=== PATIENT | male | born 1985 | race Caucasian/White ===

== ENCOUNTER 2016-07-07 19:40 | Emergency (ER) | payer OTHER ==
[~2016-07-07] VITALS: Ht 185.4 cm; Wt 86.9 kg
[~2016-07-07 19:40] MED LIST: ALBUTEROL SULF8.5 GM IH; AUGMENTIN875 MG PO; CEPHALEXIN500 MG PO; CLEOCIN150 MG PO; CLEOCIN300 MG PO; INDOCIN25 MG PO; NOHOMEMEDS; NORCO 7.5/321 TABLET PO; OXCARBAZEPINE300 MG PO; OXYCODONE H5 MG/5 ML PO; PEN-VEE K,VEET500 MG PO; PERCOCET 5/31 TABLET PO; PROVENTIL HFA6.7 GM IH; PROVENTIL17 GM IH; SINGULAIR10 MG PO; TRAMADOL HCL50 MG PO; ULTRAM50 MG PO; VENTOLIN HFA18 GM IH; ZOFRAN ODT4 MG PO; ZOLPIDEM TARTRA10 MG PO
[2016-07-07] MEDS ORDERED: ZITHROMAX Z-PA250 MG PO (21:00)
[2016-07-07] MEDS ORDERED: TYLENOL WITH C1 EACH PO (21:00)
[2016-07-07 21:34] VITALS: BP 138/83
== END 2016-07-07 21:35 | disposition home or self-care (01) ==
LOC: EME 19:40
DX: J03.90 Acute tonsillitis, unspecified (principal); F17.200 Nicotine dependence, unspecified, uncomplicated
CPT/HCPCS: 87651 90; 99281; 99284; J1100

== ENCOUNTER 2016-11-10 11:19 | Emergency (ER) | payer OTHER ==
[~2016-11-10] VITALS: Ht 188 cm; Wt 90.1 kg
[~2016-11-10 11:19] MED LIST changes: +TYLENOL WITH C1 EACH PO; +ZITHROMAX Z-PA250 MG PO
[2016-11-10] MEDS ORDERED: VENTOLIN HFA18 GM IH (11:28)
[2016-11-10 11:45] VITALS: BP 127/87
== END 2016-11-10 11:53 | disposition home or self-care (01) ==
LOC: EME 11:19
PROC: 3E0234Z Introduction of Serum, Toxoid and Vaccine into Muscle, Percutaneous Approach (ICD-10-PCS; principal; 2016-11-10)
PROC: 0HQFXZZ Repair Right Hand Skin, External Approach (ICD-10-PCS; principal; 2016-11-10)
DX: S61.216A Laceration without foreign body of right little finger without damage to nail, initial encounter (principal); W27.8XXA Contact with other nonpowered hand tool, initial encounter; Z23 Encounter for immunization; F17.200 Nicotine dependence, unspecified, uncomplicated
CPT/HCPCS: 99281; 99284

== ENCOUNTER 2017-03-31 16:18 | Emergency (ER) | payer OTHER ==
[~2017-03-31] VITALS: Ht 185.4 cm; Wt 85.9 kg
[2017-03-31] MEDS ORDERED: ZITHROMAX Z-PA250 MG PO (18:26)
[2017-03-31] MEDS ORDERED: LIDOCAINE20 MG/1 M5 PO (18:26)
[2017-03-31] MEDS ORDERED: NAPROSYN500 MG PO (18:27)
[2017-03-31 18:49] VITALS: BP 127/76
== END 2017-03-31 18:51 | disposition home or self-care (01) ==
LOC: EME 16:18
DX: J02.9 Acute pharyngitis, unspecified (principal); J35.1 Hypertrophy of tonsils; R68.83 Chills (without fever); J45.909 Unspecified asthma, uncomplicated; F17.200 Nicotine dependence, unspecified, uncomplicated
CPT/HCPCS: 87651 90; 99281; 99285; J1100

== ENCOUNTER 2017-06-19 15:30 | Emergency (ER) | payer OTHER ==
[~2017-06-19] VITALS: Ht 188 cm; Wt 89.0 kg
[~2017-06-19 15:30] MED LIST changes: +LIDOCAINE20 MG/1 M5 PO; +NAPROSYN500 MG PO
[2017-06-19 16:20] LABS: HEMATOCRIT 43.8 % (38.0-50.0); HEMOGLOBIN 14.5 G/DL (12.5-16.6); MCH 29.1 PG (29.0-34.0); MCHC 33.1 G/DL (30.0-36.0); RBC DIS.WIDTH-CV 13.1 % (11.8-14.6); RBC DIS.WIDTH-SD 41.7 % (39-53); RED BLOOD COUNT 4.98 M/uL (4.00-5.50); WHITE BLOOD COUNT 5.9 K/uL (4.1-10.2)
[2017-06-19 16:34] LABS: CHLORIDE 108 MEQ/L (99-109); POTASSIUM 4.1 MEQ/L (3.7-5.4); SODIUM 140 MEQ/L (136-147); TOTAL BILIRUBIN 0.5 MG/DL (0.0-1.0)
[2017-06-19 16:40] LABS: ALKALINE PHOSPHATASE 63 IU/L (3-129); ALT (GPT) 15 IU/L (3-49); AST (GOT) 13 IU/L (2-34); CREATININE 0.9 MG/DL (0.6-1.3); GFR ESTIMATE (CALCULATED) > 59 mL/min/ (58.99-99999); GLUCOSE 103 mg/dL (70-99); LIPASE 14 U/L (1.0-51.0); TOTAL PROTEIN 6.8 G/DL (6.4-8.3); UREA NITROGEN (BUN) 8 mg/dL (9-23)
[2017-06-19 17:19] LABS: PLAT.SUFFICIENCY ADEQUATE; PLATELET COUNT 178 K/uL (156-360)
[2017-06-19 17:20] LABS: SOURCE URINE
[2017-06-19 17:24] LABS: APPEARANCE CLEAR ((CLEAR)); BILIRUBIN NEGATIVE; BLOOD NEGATIVE; COLOR YELLOW ((YELLOW)); GLUCOSE (STRIP) NEGATIVE; KETONES NEGATIVE; LEUKOCYTES NEGATIVE; NITRITE NEGATIVE; PROTEIN (STRIP) NEGATIVE; SPECIFIC GRAVITY 1.014 (1.000-1.030); UCUL ADDED? NO; UROBILINOGEN 0.2 MG/DL (0.2-1.0)
[2017-06-19] MEDS ORDERED: MOTRIN600 MG PO (18:06)
[2017-06-19] MEDS ORDERED: NORCO 5/3251 TABLET PO (18:06)
[2017-06-19] MEDS ORDERED: OMEPRAZOLE40 M1 PO (18:06)
[2017-06-19 18:18] VITALS: BP 124/78
[2017-06-20 12:34] LABS: CHLAMYDIA TRACHOMATIS NEGATIVE; NEISSERIA GONORRHOEAE NEGATIVE
== END 2017-06-19 18:28 | disposition home or self-care (01) ==
LOC: EME 15:30
PROVIDERS: Physician Assistant
DX: N50.812 Left testicular pain (principal); R10.13 Epigastric pain; K62.5 Hemorrhage of anus and rectum; R36.9 Urethral discharge, unspecified; Z80.43 Family history of malignant neoplasm of testis; F17.200 Nicotine dependence, unspecified, uncomplicated; J45.909 Unspecified asthma, uncomplicated
CPT/HCPCS: 76870; 80053; 81003; 83690; 85027; 87491; 87591; 99281; 99284; J0696

== ENCOUNTER 2017-07-08 21:05 | Emergency (ER) | payer OTHER ==
[~2017-07-08] VITALS: Ht 188 cm; Wt 88.9 kg
[~2017-07-08 21:05] MED LIST changes: +MOTRIN600 MG PO; +NORCO 5/3251 TABLET PO; +OMEPRAZOLE40 M1 PO
[2017-07-08 22:01] LABS: APPEARANCE CLEAR ((CLEAR)); BILIRUBIN NEGATIVE; BLOOD NEGATIVE; COLOR YELLOW ((YELLOW)); GLUCOSE (STRIP) NEGATIVE; KETONES NEGATIVE; LEUKOCYTES NEGATIVE; NITRITE NEGATIVE; PROTEIN (STRIP) NEGATIVE; SPECIFIC GRAVITY 1.014 (1.000-1.030); UROBILINOGEN 0.2 MG/DL (0.2-1.0)
[2017-07-08] MEDS ORDERED: VIBRAMYCIN100 MG PO (23:28)
[2017-07-08] MEDS ORDERED: NORCO 5/3251 TABLET PO (23:28)
[2017-07-08 23:34] VITALS: BP 123/79
== END 2017-07-08 23:35 | disposition home or self-care (01) ==
LOC: EME 21:05
PROVIDERS: Physician Assistant
DX: N50.812 Left testicular pain (principal); N50.89 Other specified disorders of the male genital organs; N43.3 Hydrocele, unspecified; N50.3 Cyst of epididymis; F17.200 Nicotine dependence, unspecified, uncomplicated
CPT/HCPCS: 76870; 81003; 99281; 99284; J0696

== ENCOUNTER → 2017-09-20 | Emergency (ER) | payer OTHER ==
[~2017-09-20] VITALS: Ht 182.9 cm; Wt 82.9 kg
[~2017-09-20] MED LIST changes: +PREDNISONE50 MG PO; +VIBRAMYCIN100 MG PO
[2017-09-20 23:39] VITALS: BP 110/74
== END | disposition home or self-care (01) ==
LOC: EME 21:32
DX: J20.9 Acute bronchitis, unspecified (principal); J45.909 Unspecified asthma, uncomplicated; F17.200 Nicotine dependence, unspecified, uncomplicated; Z87.19 Personal history of other diseases of the digestive system
CPT/HCPCS: 71046; 94640; 99281; 99284; J2930

== ENCOUNTER 2017-10-25 11:32 | Emergency (ER) | payer OTHER ==
[~2017-10-25] VITALS: Ht 185.4 cm; Wt 83.3 kg
[2017-10-25] MEDS ORDERED: INDOCIN50 MG PO (13:53)
[2017-10-25] MEDS ORDERED: ULTRAM50 MG PO (13:53)
[2017-10-25] MEDS ORDERED: KEFLEX500 MG PO (13:53)
[2017-10-25 14:08] VITALS: BP 115/72
== END 2017-10-25 14:09 | disposition home or self-care (01) ==
LOC: EME 11:32
DX: S02.2XXA Fracture of nasal bones, initial encounter for closed fracture (principal); S02.401A Maxillary fracture, unspecified side, initial encounter for closed fracture; W20.8XXA Other cause of strike by thrown, projected or falling object, initial encounter; Y99.0 Civilian activity done for income or pay; J45.909 Unspecified asthma, uncomplicated; F17.200 Nicotine dependence, unspecified, uncomplicated; Z87.19 Personal history of other diseases of the digestive system
CPT/HCPCS: 70450; 70486; 99281; 99285